=== PATIENT | female | born 1990 | race Caucasian/White ===

== ENCOUNTER 2016-09-25 13:26 | Emergency (ER) | payer OTHER ==
[~2016-09-25] VITALS: Ht 160 cm; Wt 61.4 kg
[~2016-09-25 13:26] MED LIST: BACTRIM DS 8001 TAB PO; NO HOME MEDICATIONS; PREDNISONE20 MG PO
[2016-09-25 13:28] VITALS: BP 115/75; TEMP 98.9
[2016-09-25] MEDS ORDERED: CEPHALEXIN500 M1 PO (15:24)
[2016-09-25] MEDS ORDERED: NORCO 325 MG-51 TAB PO (15:24)
[2016-09-25 15:29] VITALS: PULSE 82
== END 2016-09-25 15:37 | disposition home or self-care (01) ==
LOC: COL.ER 13:26
DX: S61.212A Laceration without foreign body of right middle finger without damage to nail, initial encounter (principal); S62.662A Nondisplaced fracture of distal phalanx of right middle finger, initial encounter for closed fracture; W22.8XXA Striking against or struck by other objects, initial encounter; Y92.009 Unspecified place in unspecified non-institutional (private) residence as the place of occurrence of the external cause